=== PATIENT | female | born 1955 | race Caucasian/White ===

== ENCOUNTER 2016-08-23 15:15 | Emergency (ER) | payer BC, OTHER ==
[2016-08-23] MEDS ORDERED: DIPH/PERTUSS(ACELL)/TETANUS VAC/PF 0.5 ML SYR (>=10YO) IM ONE (15:40)
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
[2016-08-23] MEDS ORDERED: KETOROLAC TROMETHAMINE 60 MG/2 ML SDV IM ONE (15:53)
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
[2016-08-23 17:15] VITALS: BP 137/91
== END 2016-08-23 17:17 | disposition home or self-care (01) ==
LOC: ER 15:15
DX: S80.212A Abrasion, left knee, initial encounter (principal); M79.602 Pain in left arm; V87.7XXA Person injured in collision between other specified motor vehicles (traffic), initial encounter
CPT/HCPCS: 99283; 96372; 90471; 90715; J1885